=== PATIENT | female | born 1980 | race Caucasian/White ===

== ENCOUNTER 2017-01-18 18:26 | Emergency (ER) | payer OTHER ==
[~2017-01-18] VITALS: Ht 152.4 cm; Wt 80.7 kg
[~2017-01-18 18:26] MED LIST: ACETAMINOPHEN-120 ML PO; AMOXICILLI125 MG/51; AMOXICILLIN; ANASPAZ0.125 MG SL; BACTRIM; BACTRIM DS TAB1 EACH PO; BENTYL 20 MG TA20 M1 PO; CEFDINIR300 MG PO; CELEXA; CYMBALTA30 MG PO; DEPAKOTE ER500 MG PO; DEPAKOTE500 MG PO; DOXYCYCLINE 10100 MG PO; FLAGYL500 MG PO; IBUPROFEN 200200 M1; LITHIUM CARBON300 M3 PO; MEDROLDOSEPACK PO; MUCINEX TA600 MG/TA2 PO; NAPROSYN500 MG PO; NEO-POLYMYXIN-H10 ML; NEURONTIN 300300 M1 PO; NOHOMEMEDICATIONS; NORCO 5-325 TA1 EACH PO; NORFLEX100 MG PO; ONDANSETRON HCL4 M2 PO; PENICILLIN VK250 MG; PERCOCET 5-3251 EACH PO; PERCOCET PO; PHENERGAN 25 MG25 M1 PO; PHENERGAN25 MG RE; PREDNISONE 20 M20 MG PO; SEROQUEL 25 MG25 M1 PO; SEROQUEL 50 MG50 M1 NG; SEROQUEL 50 MG50 M1 PO; SULFACETAMIDE 115 M1 OP; ULTRAM 50MG TAB50 MG PO; VISTARIL; WELLBUTRIN XL300 M1; XANAX 0.5 MG0.5 M1 PO; XANAX1 MG PO; ZANTAC 150MG T150 MG PO; ZOFRAN ODT4 MG PO; ZOFRAN4 MG PO; [UNRECOGNIZED DRUG - REMARK]
[2017-01-18 19:12] LABS: URINE BILIRUBIN NEGATIVE (Negative); URINE BLOOD 1+ (Negative); URINE GLUCOSE-RANDOM* NEGATIVE (Negative); URINE KETONES TRACE (Negative); URINE LEUKOCYTES-REFLEX NEGATIVE (Negative); URINE PROTEIN (DIPSTICK) NEGATIVE (Negative); URINE UROBILINOGEN 0.2 E.U./dl (0.2-1.0)
[2017-01-18 19:14] LABS: URINE COLOR YELLOW
[2017-01-18 19:21] LABS: HEMOGLOBIN 14.2 gm/dL (12.0-15.0); MCHC 34.6 g/dL (28.0-37.0); MCV 80.8 fL (80.0-100.0); RBC 5.07 mil/uL (4.20-5.00); RDW 14.8 % (10.5-14.5); WBC 8.2 thou/uL (4.0-11.0)
[2017-01-18 19:23] LABS: SQUAMOUS 0-3 Few /LPF (0-3); URINE RBC 0-2 Rare /HPF (0-2); URINE WBC-REFLEX None Seen /HPF (0-5)
[2017-01-18 19:24] LABS: CASTS None Seen /LPF (None Seen); CRYSTALS None Seen /LPF (None Seen)
[2017-01-18 19:31] LABS: CALCIUM 8.8 mg/dL (8.5-10.1); CREATININE 0.7 mg/dL (0.6-1.0); POTASSIUM 3.6 mmol/L (3.5-5.1)
[2017-01-18] MEDS ORDERED: NAPROSYN500 MG PO (20:58)
[2017-01-18] MEDS ORDERED: PHENERGAN 25 MG25 M1 PO (20:58)
[2017-01-18 21:00] VITALS: BP 119/70
[2017-01-19 18:06] LABS: CHLAMYDIA TRACHOMATIS-PCR Negative (Negative); NEISSERIA GONORRHEA-PCR Negative (Negative)
== END 2017-01-18 21:10 | disposition home or self-care (01) ==
LOC: ER 18:26
PROVIDERS: Physician Assistant
DX: N94.89 Other specified conditions associated with female genital organs and menstrual cycle (principal); R11.0 Nausea; F41.0 Panic disorder [episodic paroxysmal anxiety]; F17.210 Nicotine dependence, cigarettes, uncomplicated; F31.9 Bipolar disorder, unspecified; Z88.1 Allergy status to other antibiotic agents

== ENCOUNTER 2017-06-17 21:17 | Emergency (ER) | payer OTHER ==
[~2017-06-17] VITALS: Ht 152.4 cm; Wt 73.9 kg
[2017-06-17 21:32] LABS: URINE BILIRUBIN NEGATIVE (Negative); URINE BLOOD NEGATIVE (Negative); URINE COLOR YELLOW; URINE GLUCOSE-RANDOM* NEGATIVE (Negative); URINE KETONES NEGATIVE (Negative); URINE NITRITE NEGATIVE (Negative); URINE PROTEIN (DIPSTICK) NEGATIVE (Negative); URINE SPECIFIC GRAVITY 1.015 (1.003-1.035); URINE UROBILINOGEN 0.2 E.U./dl (0.2-1.0)
[2017-06-17] MEDS ORDERED: ZANTAC 150MG T150 MG PO (21:36)
[2017-06-17] MEDS ORDERED: TRILEPTAL300 MG PO (21:36)
[2017-06-17] MEDS ORDERED: SEROPHENE50 MG PO (21:37)
[2017-06-17] MEDS ORDERED: LEXAPRO 10 MG T10 M1 PO (21:37)
[2017-06-17 21:55] LABS: BASOPHILS 0.7 % (0.0-2.0); EOSINOPHILS 3.1 % (0.0-3.0); HEMATOCRIT 37.7 % (37.0-47.0); LYMPHOCYTES 21.1 % (24.0-44.0); MCH 28.7 pg (26.0-34.0); MCHC 34.6 g/dL (28.0-37.0); MCV 82.9 fL (80.0-100.0); MONOCYTES 6.1 % (1.0-8.0); PLATELET COUNT 304 thou/uL (150-400); RBC 4.55 mil/uL (4.20-5.00); WBC 11.6 thou/uL (4.0-11.0)
[2017-06-17 22:04] LABS: CALCIUM 8.2 mg/dL (8.5-10.1); CREATININE 0.7 mg/dL (0.6-1.0); POTASSIUM 4.1 mmol/L (3.5-5.1)
[2017-06-17 22:11] LABS: MANUAL DIFF NO
[2017-06-17] MEDS ORDERED: NAPROSYN500 MG PO (23:16)
[2017-06-17 23:30] VITALS: BP 107/75
== END 2017-06-17 23:30 | disposition home or self-care (01) ==
LOC: ER 21:17
PROVIDERS: Nurse Practitioner
DX: R10.9 Unspecified abdominal pain (principal); F41.0 Panic disorder [episodic paroxysmal anxiety]; F31.9 Bipolar disorder, unspecified; F17.210 Nicotine dependence, cigarettes, uncomplicated; F10.99 Alcohol use, unspecified with unspecified alcohol-induced disorder; Z88.1 Allergy status to other antibiotic agents

== ENCOUNTER 2017-07-19 19:41 | Emergency (ER) | payer OTHER ==
[~2017-07-19] VITALS: Ht 152.4 cm; Wt 73.9 kg
[~2017-07-19 19:41] MED LIST changes: +LEXAPRO 10 MG T10 M1 PO; +SEROPHENE50 MG PO; +TRILEPTAL300 MG PO
[2017-07-19] MEDS ORDERED: SEROQUEL 50 MG50 M1 PO (19:59)
[2017-07-19] MEDS ORDERED: VISTARIL 25 MG25 M1 PO (21:06)
[2017-07-19 21:23] VITALS: BP 138/103
== END 2017-07-19 21:25 | disposition home or self-care (01) ==
LOC: ER 19:41
DX: L29.8 Other pruritus (principal); F41.0 Panic disorder [episodic paroxysmal anxiety]; F31.9 Bipolar disorder, unspecified; F17.210 Nicotine dependence, cigarettes, uncomplicated; F10.99 Alcohol use, unspecified with unspecified alcohol-induced disorder; Z87.442 Personal history of urinary calculi; Z88.1 Allergy status to other antibiotic agents

== ENCOUNTER 2017-11-06 14:41 | Emergency (ER) | payer OTHER ==
[~2017-11-06] VITALS: Ht 152.4 cm; Wt 86.2 kg
[~2017-11-06 14:41] MED LIST changes: +VISTARIL 25 MG25 M1 PO
[2017-11-06 15:54] LABS: URINE BILIRUBIN NEGATIVE (Negative); URINE BLOOD TRACE (Negative); URINE CLARITY CLEAR; URINE COLOR YELLOW; URINE GLUCOSE-RANDOM* NEGATIVE (Negative); URINE KETONES NEGATIVE (Negative); URINE LEUKOCYTES-REFLEX NEGATIVE (Negative); URINE NITRITE-REFLEX NEGATIVE (Negative); URINE PROTEIN (DIPSTICK) NEGATIVE (Negative); URINE SPECIFIC GRAVITY 1.025 (1.005-1.035); URINE UROBILINOGEN 0.2 E.U./dl (0.2-1.0)
[2017-11-06 16:01] LABS: ABSOLUTE NEUTROPHILS 8.8 thou/uL (1.4-8.2); BASOPHILS 0.7 % (0.0-2.0); EOSINOPHILS 0.9 % (0.0-3.0); HEMATOCRIT 41.6 % (37.0-47.0); HEMOGLOBIN 13.9 gm/dL (12.0-15.0); LYMPHOCYTES 16.7 % (24.0-44.0); MCH 26.8 pg (26.0-34.0); MCHC 33.4 g/dL (28.0-37.0); MCV 80.4 fL (80.0-100.0); MONOCYTES 4.3 % (1.0-8.0); PLATELET COUNT 332 thou/uL (150-400); POLYS 77.4 % (36.0-66.0); RBC 5.18 mil/uL (4.20-5.00); RDW 15.2 % (10.5-14.5); WBC 11.3 thou/uL (4.0-11.0)
[2017-11-06 16:04] LABS: ANION GAP 7 mmol/L (7-16); BUN 12 mg/dL (7-18); CALCIUM 9.3 mg/dL (8.5-10.1); CHLORIDE 102 mmol/L (98-107); CO2 26 mmol/L (21-32); CREATININE 0.8 mg/dL (0.6-1.0); GLUCOSE 96 mg/dL (74-106); POTASSIUM 3.8 mmol/L (3.5-5.1); SODIUM 135 mmol/L (136-145)
[2017-11-06 16:10] LABS: ALBUMIN 3.9 g/dL (3.4-5.0); DIRECT BILIRUBIN < 0.1 mg/dL (<0.1-0.3); LIPASE 140 U/L (73-393); SGOT 25 U/L (15-37); SGPT 28 U/L (30-65); TOTAL BILIRUBIN 0.2 mg/dL (<0.1-1.0); TOTAL PROTEIN 7.6 g/dL (6.4-8.2)
[2017-11-06] MEDS ORDERED: NAPROSYN500 MG PO (17:04)
[2017-11-06] MEDS ORDERED: PYRIDIUM200 MG PO (17:13)
[2018-06-01] MEDS ORDERED: FLEXERIL PO (18:42)
== END 2017-11-06 19:04 | disposition home or self-care (01) ==
LOC: ER 14:41
PROVIDERS: Emergency Medicine
DX: R10.32 Left lower quadrant pain (principal); R30.0 Dysuria; F17.210 Nicotine dependence, cigarettes, uncomplicated; Z88.1 Allergy status to other antibiotic agents

== ENCOUNTER 2017-11-27 18:28 | Emergency (ER) | payer OTHER ==
[~2017-11-27] VITALS: Ht 152.4 cm; Wt 83.9 kg
--- NOTE | ~2017-11-27 | EKG ---
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
[~2017-11-27 18:28] MED LIST changes: +PYRIDIUM200 MG PO
[2017-11-27 19:31] LABS: URINE BILIRUBIN NEGATIVE (Negative); URINE BLOOD NEGATIVE (Negative); URINE CLARITY CLEAR; URINE COLOR YELLOW; URINE GLUCOSE-RANDOM* NEGATIVE (Negative); URINE KETONES NEGATIVE (Negative); URINE LEUKOCYTES-REFLEX NEGATIVE (Negative); URINE NITRITE-REFLEX NEGATIVE (Negative); URINE PROTEIN (DIPSTICK) NEGATIVE (Negative); URINE SPECIFIC GRAVITY <= 1.005 (1.005-1.035); URINE UROBILINOGEN 0.2 E.U./dl (0.2-1.0)
[2017-11-27 19:46] LABS: ABSOLUTE NEUTROPHILS 6.1 thou/uL (1.4-8.2); BASOPHILS 0.9 % (0.0-2.0); EOSINOPHILS 0.6 % (0.0-3.0); HEMATOCRIT 40.3 % (37.0-47.0); HEMOGLOBIN 13.5 gm/dL (12.0-15.0); LYMPHOCYTES 25.9 % (24.0-44.0); MCH 27.1 pg (26.0-34.0); MCHC 33.5 g/dL (28.0-37.0); MCV 80.9 fL (80.0-100.0); MONOCYTES 5.8 % (1.0-8.0); PLATELET COUNT 320 thou/uL (150-400); POLYS 66.8 % (36.0-66.0); RBC 4.98 mil/uL (4.20-5.00); RDW 15.2 % (10.5-14.5); WBC 9.1 thou/uL (4.0-11.0)
[2017-11-27 19:53] LABS: ANION GAP 13 mmol/L (7-16); BUN 6 mg/dL (7-18); CALCIUM 9.3 mg/dL (8.5-10.1); CHLORIDE 103 mmol/L (98-107); CO2 24 mmol/L (21-32); CREATININE 0.7 mg/dL (0.6-1.0); GLUCOSE 95 mg/dL (74-106); POTASSIUM 3.5 mmol/L (3.5-5.1); SODIUM 140 mmol/L (136-145)
[2017-11-27 20:02] LABS: ALBUMIN 3.9 g/dL (3.4-5.0); LIPASE 108 U/L (73-393); SGOT 21 U/L (15-37); SGPT 23 U/L (30-65); TOTAL BILIRUBIN 0.3 mg/dL (<0.1-1.0); TOTAL PROTEIN 7.7 g/dL (6.4-8.2); TROPONIN-I < 0.04 ng/mL (<0.06)
[2017-11-27] MEDS ORDERED: AMOXICILLIN875 MG PO (21:02)
[2018-06-01] MEDS ORDERED: FLEXERIL PO (18:42)
== END 2017-11-27 21:41 | disposition home or self-care (01) ==
LOC: ER 18:28
PROVIDERS: Emergency Medicine
DX: H72.92 Unspecified perforation of tympanic membrane, left ear (principal); R11.2 Nausea with vomiting, unspecified; F31.9 Bipolar disorder, unspecified; F17.210 Nicotine dependence, cigarettes, uncomplicated; F10.99 Alcohol use, unspecified with unspecified alcohol-induced disorder; Z88.1 Allergy status to other antibiotic agents

== ENCOUNTER 2017-12-21 19:20 | Emergency (ER) | payer OTHER ==
[~2017-12-21] VITALS: Ht 152.4 cm; Wt 83.0 kg
[~2017-12-21 19:20] MED LIST changes: +AMOXICILLIN875 MG PO
[2017-12-21] MEDS ORDERED: ZANTAC 150MG T150 MG PO (19:36)
[2017-12-21 19:58] LABS: URINE BILIRUBIN NEGATIVE (Negative); URINE BLOOD 1+ (Negative); URINE CLARITY CLEAR; URINE COLOR YELLOW; URINE GLUCOSE-RANDOM* NEGATIVE (Negative); URINE KETONES NEGATIVE (Negative); URINE LEUKOCYTES NEGATIVE (Negative); URINE NITRITE NEGATIVE (Negative); URINE PROTEIN (DIPSTICK) NEGATIVE (Negative); URINE SPECIFIC GRAVITY 1.025 (1.005-1.035); URINE UROBILINOGEN 0.2 E.U./dl (0.2-1.0)
[2017-12-21 20:06] LABS: AMP/METHAMP Negative (Negative); BARBITURATES Negative (Negative); BENZODIAZEPINES Negative (Negative); COCAINE Negative (Negative); METHADONE Negative (Negative); OPIATES Negative (Negative); PCP Negative (Negative)
[2017-12-21 20:24] LABS: BACTERIA 1-9 Few /HPF (None Seen); CASTS None Seen /LPF (None Seen); CRYSTALS None Seen /LPF (None Seen); MUCUS 0-3 Light strn/LPF (None Seen); SQUAMOUS 0-3 Few /LPF (0-3); URINE RBC 3-10 Few /HPF (0-2); URINE WBC None Seen /HPF (0-5)
[2017-12-21 20:27] LABS: ABSOLUTE NEUTROPHILS 5.1 thou/uL (1.4-8.2); BASOPHILS 1.1 % (0.0-2.0); EOSINOPHILS 2.1 % (0.0-3.0); HEMATOCRIT 40.4 % (37.0-47.0); HEMOGLOBIN 13.8 gm/dL (12.0-15.0); LYMPHOCYTES 26.2 % (24.0-44.0); MCH 27.5 pg (26.0-34.0); MCHC 34.1 g/dL (28.0-37.0); MCV 80.8 fL (80.0-100.0); MONOCYTES 4.9 % (1.0-8.0); PLATELET COUNT 321 thou/uL (150-400); POLYS 65.7 % (36.0-66.0); RDW 15.2 % (10.5-14.5); WBC 7.7 thou/uL (4.0-11.0)
[2017-12-21 20:41] LABS: CALCIUM 9.3 mg/dL (8.5-10.1); CREATININE 0.8 mg/dL (0.6-1.0); POTASSIUM 3.7 mmol/L (3.5-5.1)
[2017-12-21 22:38] VITALS: BP 115/72
== END 2017-12-21 22:40 | disposition home or self-care (01) ==
LOC: ER 19:20
PROVIDERS: Nurse Practitioner
DX: F99 Mental disorder, not otherwise specified (principal); F17.210 Nicotine dependence, cigarettes, uncomplicated; F41.0 Panic disorder [episodic paroxysmal anxiety]; Z88.1 Allergy status to other antibiotic agents; Z87.442 Personal history of urinary calculi

== ENCOUNTER 2018-06-12 10:38 | Emergency (ER) | payer OTHER ==
[~2018-06-12] VITALS: Ht 152.4 cm; Wt 82.6 kg
[~2018-06-12 10:38] MED LIST changes: +FLEXERIL PO
[2018-06-12] MEDS ORDERED: SEROQUEL300 MG PO (10:47)
[2018-06-12] MEDS ORDERED: BACTRIM DS TAB1 EACH PO (12:03)
[2018-06-12] MEDS ORDERED: MOBIC15 MG PO (12:04)
[2018-06-12 12:18] VITALS: BP 120/76
== END 2018-06-12 12:15 | disposition home or self-care (01) ==
LOC: ER 10:38
DX: N76.4 Abscess of vulva (principal); F17.210 Nicotine dependence, cigarettes, uncomplicated; F31.9 Bipolar disorder, unspecified; Z88.1 Allergy status to other antibiotic agents; Z87.442 Personal history of urinary calculi

== ENCOUNTER 2018-06-30 20:31 | Emergency (ER) | payer OTHER ==
[~2018-06-30] VITALS: Ht 152.4 cm; Wt 86.2 kg
--- NOTE | ~2018-06-30 | EKG ---
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
[~2018-06-30 20:31] MED LIST changes: +MOBIC15 MG PO; +SEROQUEL300 MG PO
[2018-06-30 21:22] LABS: URINE BILIRUBIN NEGATIVE (Negative); URINE BLOOD TRACE (Negative); URINE CLARITY CLEAR; URINE COLOR YELLOW; URINE GLUCOSE-RANDOM* NEGATIVE (Negative); URINE KETONES 2+ (Negative); URINE LEUKOCYTES NEGATIVE (Negative); URINE LEUKOCYTES-REFLEX NEGATIVE (Negative); URINE NITRITE NEGATIVE (Negative); URINE NITRITE-REFLEX NEGATIVE (Negative); URINE PROTEIN (DIPSTICK) NEGATIVE (Negative); URINE SPECIFIC GRAVITY >= 1.030 (1.005-1.035); URINE UROBILINOGEN 0.2 E.U./dl (0.2-1.0)
[2018-06-30 21:37] LABS: ABSOLUTE NEUTROPHILS 5.7 thou/uL (1.4-8.2); BASOPHILS 0.9 % (0.0-2.0); EOSINOPHILS 0.5 % (0.0-3.0); HEMOGLOBIN 14.4 gm/dL (12.0-15.0); LYMPHOCYTES 22.9 % (24.0-44.0); MCH 28.2 pg (26.0-34.0); MCV 80.4 fL (80.0-100.0); MONOCYTES 7.9 % (1.0-8.0); PLATELET COUNT 330 thou/uL (150-400); POLYS 67.8 % (36.0-66.0); WBC 8.3 thou/uL (4.0-11.0)
[2018-06-30 21:50] LABS: ANION GAP 14 mmol/L (7-16); BUN 7 mg/dL (7-18); CALCIUM 9.3 mg/dL (8.5-10.1); CHLORIDE 100 mmol/L (98-107); CO2 22 mmol/L (21-32); CREATININE 0.8 mg/dL (0.6-1.0); GLUCOSE 110 mg/dL (74-106); POTASSIUM 3.8 mmol/L (3.5-5.1); SODIUM 136 mmol/L (136-145)
[2018-06-30 21:57] LABS: ALBUMIN 4.1 g/dL (3.4-5.0); DIRECT BILIRUBIN < 0.1 mg/dL (<0.1-0.3); LIPASE 98 U/L (73-393); SGOT 16 U/L (15-37); SGPT 25 U/L (30-65); TOTAL BILIRUBIN 0.3 mg/dL (<0.1-1.0); TOTAL PROTEIN 8.3 g/dL (6.4-8.2); TROPONIN-I <0.06 ng/mL (<0.06)
[2018-06-30] MEDS ORDERED: PHENERGAN 25 MG25 M1 PO (22:40)
[2018-06-30] MEDS ORDERED: NAPROSYN500 MG PO (22:40)
[2018-06-30 23:02] VITALS: BP 124/77
== END 2018-06-30 23:07 | disposition home or self-care (01) ==
LOC: ER 20:31
PROVIDERS: Physician Assistant
DX: R11.2 Nausea with vomiting, unspecified (principal); G89.29 Other chronic pain; M79.10 Myalgia, unspecified site; N32.81 Overactive bladder; R10.13 Epigastric pain; R10.30 Lower abdominal pain, unspecified; R00.0 Tachycardia, unspecified; F17.210 Nicotine dependence, cigarettes, uncomplicated; Z88.1 Allergy status to other antibiotic agents; F31.9 Bipolar disorder, unspecified; Z87.442 Personal history of urinary calculi; F41.0 Panic disorder [episodic paroxysmal anxiety]

== ENCOUNTER 2018-08-25 18:37 | Emergency (ER) | payer OTHER ==
[~2018-08-25] VITALS: Ht 152.4 cm; Wt 88.5 kg
[2018-08-25] MEDS ORDERED: DEPAKOTE ER500 MG PO (18:51)
[2018-08-25] MEDS ORDERED: MINIPRESS1 MG PO (18:52)
[2018-08-25] MEDS ORDERED: CORTISPORIN OTI10 M2 OTIC (19:28)
[2018-08-25 20:19] VITALS: BP 106/67
== END 2018-08-25 20:20 | disposition home or self-care (01) ==
LOC: ER 18:37
DX: H60.93 Unspecified otitis externa, bilateral (principal); F31.9 Bipolar disorder, unspecified; F17.210 Nicotine dependence, cigarettes, uncomplicated; Z88.1 Allergy status to other antibiotic agents

== ENCOUNTER 2018-11-22 16:28 | Emergency (ER) | payer OTHER ==
[~2018-11-22] VITALS: Ht 152.4 cm; Wt 90.7 kg
[~2018-11-22 16:28] MED LIST changes: +CORTISPORIN OTI10 M2 OTIC; +MINIPRESS1 MG PO
[2018-11-22 16:32] VITALS: BP 140/81
[2018-11-22] MEDS ORDERED: ZYPREXA ZYDIS10 MG PO (16:38)
[2018-11-22] MEDS ORDERED: CLARITIN-D 121 EAC1 PO (17:14)
[2018-11-22] MEDS ORDERED: ONDANSETRON HCL4 M2 PO (17:14)
== END 2018-11-22 17:26 | disposition home or self-care (01) ==
LOC: ER 16:28
DX: B34.9 Viral infection, unspecified (principal); F41.0 Panic disorder [episodic paroxysmal anxiety]; F31.9 Bipolar disorder, unspecified; F17.210 Nicotine dependence, cigarettes, uncomplicated; Z87.442 Personal history of urinary calculi; Z98.890 Other specified postprocedural states; Z88.1 Allergy status to other antibiotic agents

== ENCOUNTER 2019-08-19 21:57 | Emergency (ER) | payer OTHER ==
[~2019-08-19] VITALS: Ht 152.4 cm; Wt 77.1 kg
[~2019-08-19 21:57] MED LIST changes: +CLARITIN-D 121 EAC1 PO; +ZYPREXA ZYDIS10 MG PO
[2019-08-19] MEDS ORDERED: OMEPRAZOLE 20 M20 M1 PO (22:08)
[2019-08-19] MEDS ORDERED: TOPAMAX 25 MG T25 M1 PO (22:09)
[2019-08-19 23:12] LABS: ABSOLUTE NEUTROPHILS 12.2 thou/uL (1.4-8.2); BASOPHILS 0.5 % (0.0-2.0); EOSINOPHILS 0.4 % (0.0-3.0); HEMATOCRIT 44.1 % (37.0-47.0); HEMOGLOBIN 14.5 gm/dL (12.0-15.0); LYMPHOCYTES 15.2 % (24.0-44.0); MCH 26.9 pg (26.0-34.0); MCHC 32.8 g/dL (28.0-37.0); MCV 81.9 fL (80.0-100.0); MONOCYTES 6.4 % (1.0-8.0); PLATELET COUNT 389 thou/uL (150-400); POLYS 77.5 % (36.0-66.0); RBC 5.38 mil/uL (4.20-5.00); RDW 15.5 % (10.5-14.5); WBC 15.7 thou/uL (4.0-11.0)
[2019-08-19 23:16] LABS: CALCIUM 9.2 mg/dL (8.5-10.1); CREATININE 1.1 mg/dL (0.6-1.0); POTASSIUM 3.2 mmol/L (3.5-5.1)
[2019-08-20] MEDS ORDERED: LIDOCAINE 2%2 %/5 GM TOP (01:09)
[2019-08-20 01:16] VITALS: BP 103/59
== END 2019-08-20 01:40 | disposition home or self-care (01) ==
LOC: ER 21:57
PROVIDERS: Emergency Medicine
DX: S01.01XA Laceration without foreign body of scalp, initial encounter (principal); S30.811A Abrasion of abdominal wall, initial encounter; S50.312A Abrasion of left elbow, initial encounter; S60.512A Abrasion of left hand, initial encounter; F31.9 Bipolar disorder, unspecified; F17.210 Nicotine dependence, cigarettes, uncomplicated; Z87.442 Personal history of urinary calculi; Z98.890 Other specified postprocedural states; Z88.1 Allergy status to other antibiotic agents; W01.198A Fall on same level from slipping, tripping and stumbling with subsequent striking against other object, initial encounter; Y92.810 Car as the place of occurrence of the external cause; Y93.89 Activity, other specified; Y99.8 Other external cause status

== ENCOUNTER 2019-09-12 13:50 | Emergency (ER) | payer OTHER ==
[~2019-09-12] VITALS: Ht 152.4 cm; Wt 74.8 kg
[~2019-09-12 13:50] MED LIST changes: +LIDOCAINE 2%2 %/5 GM TOP; +OMEPRAZOLE 20 M20 M1 PO; +TOPAMAX 25 MG T25 M1 PO
[2019-09-12 13:51] VITALS: BP 119/78
== END 2019-09-12 14:59 | disposition home or self-care (01) ==
LOC: ER 13:50
DX: Z48.02 Encounter for removal of sutures (principal); F31.9 Bipolar disorder, unspecified; F17.210 Nicotine dependence, cigarettes, uncomplicated; Z98.51 Tubal ligation status; Z87.442 Personal history of urinary calculi; Z88.1 Allergy status to other antibiotic agents

== ENCOUNTER 2020-05-09 21:42 | Emergency (ER) | payer OTHER ==
[~2020-05-09] VITALS: Ht 152.4 cm; Wt 80.7 kg
[2020-05-09] MEDS ORDERED: OLANZAPINE10 MG PO (21:52)
[2020-05-10] MEDS ORDERED: BACTRIM DS TAB1 EACH PO (00:21)
[2020-05-10 00:27] VITALS: BP 109/78
== END 2020-05-10 00:27 | disposition home or self-care (01) ==
LOC: ER 21:42
DX: N75.0 Cyst of Bartholin's gland (principal); R35.0 Frequency of micturition; F31.9 Bipolar disorder, unspecified; F41.0 Panic disorder [episodic paroxysmal anxiety]; F17.210 Nicotine dependence, cigarettes, uncomplicated; Z98.51 Tubal ligation status; Z87.442 Personal history of urinary calculi; Z79.899 Other long term (current) drug therapy; Z88.1 Allergy status to other antibiotic agents

== ENCOUNTER 2020-05-20 04:46 | Emergency (ER) | payer OTHER ==
[~2020-05-20] VITALS: Ht 154.9 cm; Wt 84.8 kg
[~2020-05-20 04:46] MED LIST changes: +OLANZAPINE10 MG PO
[2020-05-20] MEDS ORDERED: EXCEDRIN CAPLE1 EACH PO (04:54)
[2020-05-20] MEDS ORDERED: NAPROSYN500 MG PO (05:16)
[2020-05-20 06:04] VITALS: BP 113/77
== END 2020-05-20 06:06 | disposition home or self-care (01) ==
LOC: ER 04:46
DX: S80.02XA Contusion of left knee, initial encounter (principal); J02.9 Acute pharyngitis, unspecified; M54.2 Cervicalgia; F41.0 Panic disorder [episodic paroxysmal anxiety]; F31.9 Bipolar disorder, unspecified; F17.210 Nicotine dependence, cigarettes, uncomplicated; Z98.51 Tubal ligation status; Z87.442 Personal history of urinary calculi; Z79.899 Other long term (current) drug therapy; Z79.82 Long term (current) use of aspirin; Z88.1 Allergy status to other antibiotic agents; Y04.8XXA Assault by other bodily force, initial encounter; Y93.89 Activity, other specified; Y92.89 Other specified places as the place of occurrence of the external cause; Y99.8 Other external cause status

== ENCOUNTER 2020-06-15 16:19 | Emergency (ER) | payer OTHER ==
[~2020-06-15] VITALS: Ht 165.1 cm; Wt 89.4 kg
[~2020-06-15 16:19] MED LIST changes: +EXCEDRIN CAPLE1 EACH PO
[2020-06-15 17:04] LABS: URINE BLOOD 3+ (Negative); URINE CLARITY CLEAR; URINE COLOR YELLOW; URINE GLUCOSE-RANDOM* NEGATIVE (Negative); URINE KETONES 1+ (Negative); URINE NITRITE-REFLEX NEGATIVE (Negative); URINE PROTEIN (DIPSTICK) TRACE (Negative); URINE SPECIFIC GRAVITY >= 1.030 (1.005-1.035)
[2020-06-15 17:05] LABS: URINE BILIRUBIN NEGATIVE (Negative); URINE LEUKOCYTES-REFLEX 1+ (Negative)
[2020-06-15 17:12] LABS: URINE RBC >20 Many /HPF (0-2)
[2020-06-15 17:13] LABS: CASTS None Seen /LPF (None Seen); CRYSTALS None Seen /LPF (None Seen); SQUAMOUS 4-10 Moderate /LPF (0-3); URINE WBC-REFLEX 6-15 Few /HPF (0-5)
[2020-06-15 17:14] LABS: BACTERIA-REFLEX 1-9 Few /HPF (None Seen)
[2020-06-15] MEDS ORDERED: FLAGYL500 M1 PO (18:29)
[2020-06-15] MEDS ORDERED: KEFLEX500 M1 PO (18:29)
[2020-06-15 18:35] VITALS: BP 145/85
== END 2020-06-15 18:35 | disposition home or self-care (01) ==
LOC: ER 16:19
PROVIDERS: Nurse Practitioner
DX: N39.0 Urinary tract infection, site not specified (principal); A59.01 Trichomonal vulvovaginitis; F17.210 Nicotine dependence, cigarettes, uncomplicated; Z79.899 Other long term (current) drug therapy; Z79.82 Long term (current) use of aspirin; Z88.1 Allergy status to other antibiotic agents

== ENCOUNTER 2020-09-08 16:53 | Emergency (ER) | payer OTHER ==
[~2020-09-08] VITALS: Ht 154.9 cm; Wt 87.5 kg
[~2020-09-08 16:53] MED LIST changes: +FLAGYL500 M1 PO; +KEFLEX500 M1 PO
[2020-09-08] MEDS ORDERED: DEPAKOTE ER500 M1 PO (17:07)
[2020-09-08 17:49] LABS: URINE BILIRUBIN NEGATIVE (Negative); URINE BLOOD 3+ (Negative); URINE GLUCOSE-RANDOM* NEGATIVE (Negative); URINE KETONES NEGATIVE (Negative); URINE LEUKOCYTES-REFLEX NEGATIVE (Negative); URINE NITRITE-REFLEX NEGATIVE (Negative); URINE PROTEIN (DIPSTICK) NEGATIVE (Negative); URINE UROBILINOGEN 0.2 E.U./dl (0.2-1.0)
[2020-09-08 17:50] LABS: URINE CLARITY HAZY; URINE COLOR LT RED
[2020-09-08 17:52] LABS: BACTERIA-REFLEX None Seen /HPF (None Seen); CASTS None Seen /LPF (None Seen); CRYSTALS None Seen /LPF (None Seen); MUCUS 0-3 Light strn/LPF (None Seen); SQUAMOUS 4-10 Moderate /LPF (0-3); URINE RBC >20 Many /HPF (0-2); URINE WBC-REFLEX 0-5 Rare /HPF (0-5)
[2020-09-08 17:53] LABS: ABSOLUTE NEUTROPHILS 6.9 thou/uL (1.4-8.2); BASOPHILS 0.9 % (0.0-2.0); EOSINOPHILS 2.3 % (0.0-3.0); HEMATOCRIT 41.7 % (37.0-47.0); HEMOGLOBIN 13.6 gm/dL (12.0-15.0); LYMPHOCYTES 19.9 % (24.0-44.0); MCH 27.3 pg (26.0-34.0); MCHC 32.5 g/dL (28.0-37.0); MCV 83.9 fL (80.0-100.0); MONOCYTES 5.5 % (1.0-8.0); PLATELET COUNT 303 thou/uL (150-400); POLYS 71.4 % (36.0-66.0); RBC 4.97 mil/uL (4.20-5.00); WBC 9.6 thou/uL (4.0-11.0)
[2020-09-08 17:56] LABS: CALCIUM 8.4 mg/dL (8.5-10.1); CREATININE 0.8 mg/dL (0.6-1.0); POTASSIUM 3.6 mmol/L (3.5-5.1)
[2020-09-08 18:02] LABS: ALBUMIN 2.8 g/dL (3.4-5.0); TOTAL BILIRUBIN 0.3 mg/dL (0.2-1.0); TOTAL PROTEIN 5.6 g/dL (6.4-8.2)
[2020-09-08] MEDS ORDERED: ONDANSETRON HCL4 M2 PO (18:17)
[2020-09-08] MEDS ORDERED: BACTRIM DS TAB1 EACH PO (18:17)
[2020-09-08] MEDS ORDERED: NORCO 5-325 TA1 EAC2 PO (18:17)
[2020-09-08 18:31] VITALS: BP 122/80
== END 2020-09-08 18:40 | disposition home or self-care (01) ==
LOC: ER 16:53
PROVIDERS: Physician Assistant
DX: N76.4 Abscess of vulva (principal); R11.0 Nausea; F17.210 Nicotine dependence, cigarettes, uncomplicated; Z88.1 Allergy status to other antibiotic agents; F31.9 Bipolar disorder, unspecified; Z98.51 Tubal ligation status; Z87.442 Personal history of urinary calculi; Z98.890 Other specified postprocedural states; Z79.82 Long term (current) use of aspirin; Z79.899 Other long term (current) drug therapy

== ENCOUNTER 2020-10-01 16:00 | Emergency (ER) | payer OTHER ==
[~2020-10-01] VITALS: Ht 152.4 cm; Wt 85.7 kg
[~2020-10-01 16:00] MED LIST changes: +DEPAKOTE ER500 M1 PO; +NORCO 5-325 TA1 EAC2 PO
[2020-10-01 16:59] LABS: URINE BILIRUBIN NEGATIVE (Negative); URINE BLOOD NEGATIVE (Negative); URINE CLARITY SL CLOUDY; URINE COLOR YELLOW; URINE GLUCOSE-RANDOM* NEGATIVE (Negative); URINE KETONES NEGATIVE (Negative); URINE LEUKOCYTES-REFLEX NEGATIVE (Negative); URINE NITRITE-REFLEX NEGATIVE (Negative); URINE PROTEIN (DIPSTICK) NEGATIVE (Negative); URINE SPECIFIC GRAVITY >= 1.030 (1.005-1.035)
[2020-10-01 17:49] LABS: ABSOLUTE NEUTROPHILS 3.6 thou/uL (1.4-8.2); EOSINOPHILS 2.7 % (0.0-3.0); HEMATOCRIT 43.5 % (37.0-47.0); HEMOGLOBIN 14.5 gm/dL (12.0-15.0); LYMPHOCYTES 28.6 % (24.0-44.0); MCH 27.9 pg (26.0-34.0); MCHC 33.2 g/dL (28.0-37.0); MCV 83.8 fL (80.0-100.0); PLATELET COUNT 306 thou/uL (150-400); POLYS 57.7 % (36.0-66.0); RDW 15.5 % (10.5-14.5); WBC 6.2 thou/uL (4.0-11.0)
[2020-10-01 18:00] LABS: CALCIUM 8.5 mg/dL (8.5-10.1); CREATININE 0.7 mg/dL (0.6-1.0); POTASSIUM 3.9 mmol/L (3.5-5.1)
[2020-10-01 18:06] LABS: ALBUMIN 2.9 g/dL (3.4-5.0); TOTAL BILIRUBIN 0.2 mg/dL (0.2-1.0); TOTAL PROTEIN 6.1 g/dL (6.4-8.2)
[2020-10-01] MEDS ORDERED: AUGMENTIN 875-1 EACH PO (19:22)
[2020-10-01] MEDS ORDERED: HYDROCODON-ACE1 EAC7 PO (19:22)
[2020-10-01 19:32] VITALS: BP 99/56
== END 2020-10-01 19:33 | disposition home or self-care (01) ==
LOC: ER 16:00
PROVIDERS: Emergency Medicine
DX: K61.0 Anal abscess (principal); K61.1 Rectal abscess; F17.210 Nicotine dependence, cigarettes, uncomplicated; Z79.82 Long term (current) use of aspirin; Z88.1 Allergy status to other antibiotic agents; Z87.442 Personal history of urinary calculi; Z98.890 Other specified postprocedural states; Z98.51 Tubal ligation status

== ENCOUNTER 2020-10-28 14:43 | Emergency (ER) | payer OTHER ==
[~2020-10-28] VITALS: Ht 152.4 cm; Wt 85.7 kg
[~2020-10-28 14:43] MED LIST changes: +AUGMENTIN 875-1 EACH PO; +HYDROCODON-ACE1 EAC7 PO
[2020-10-28 15:23] LABS: URINE BILIRUBIN NEGATIVE (Negative); URINE BLOOD NEGATIVE (Negative); URINE CLARITY CLEAR; URINE COLOR YELLOW; URINE GLUCOSE-RANDOM* NEGATIVE (Negative); URINE KETONES NEGATIVE (Negative); URINE LEUKOCYTES-REFLEX NEGATIVE (Negative); URINE NITRITE-REFLEX NEGATIVE (Negative); URINE PROTEIN (DIPSTICK) NEGATIVE (Negative); URINE SPECIFIC GRAVITY >= 1.030 (1.005-1.035); URINE UROBILINOGEN 0.2 E.U./dl (0.2-1.0)
[2020-10-28 17:27] LABS: ABSOLUTE NEUTROPHILS 3.5 thou/uL (1.4-8.2); BASOPHILS 1.2 % (0.0-2.0); EOSINOPHILS 4.5 % (0.0-3.0); HEMATOCRIT 42.2 % (37.0-47.0); HEMOGLOBIN 13.9 gm/dL (12.0-15.0); LYMPHOCYTES 27.1 % (24.0-44.0); MCH 27.8 pg (26.0-34.0); MCHC 32.9 g/dL (28.0-37.0); MCV 84.5 fL (80.0-100.0); MONOCYTES 8.8 % (1.0-8.0); PLATELET COUNT 295 thou/uL (150-400); POLYS 58.4 % (36.0-66.0); RDW 15.4 % (10.5-14.5)
[2020-10-28 17:37] LABS: CALCIUM 8.8 mg/dL (8.5-10.1); CREATININE 0.8 mg/dL (0.6-1.0)
[2020-10-28 17:39] LABS: POTASSIUM 4.6 mmol/L (3.5-5.1)
[2020-10-28 17:42] LABS: TOTAL BILIRUBIN 0.3 mg/dL (0.2-1.0); TOTAL PROTEIN 6.5 g/dL (6.4-8.2)
[2020-10-28] MEDS ORDERED: FLAGYL500 M1 PO (19:13)
[2020-10-28 19:51] VITALS: BP 129/74
== END 2020-10-28 19:30 | disposition home or self-care (01) ==
LOC: ER 14:43
PROVIDERS: Physician Assistant
DX: N76.0 Acute vaginitis (principal); B96.89 Other specified bacterial agents as the cause of diseases classified elsewhere; F17.210 Nicotine dependence, cigarettes, uncomplicated; Z79.899 Other long term (current) drug therapy; Z88.1 Allergy status to other antibiotic agents

== ENCOUNTER 2021-01-03 00:17 | Emergency (ER) | payer OTHER ==
[~2021-01-03] VITALS: Ht 152.4 cm; Wt 86.2 kg
[2021-01-03] MEDS ORDERED: ZYPREXA20 MG PO (00:22)
[2021-01-03 02:04] VITALS: BP 102/80
== END 2021-01-03 02:10 | disposition home or self-care (01) ==
LOC: ER 00:17
DX: S93.492A Sprain of other ligament of left ankle, initial encounter (principal); F17.210 Nicotine dependence, cigarettes, uncomplicated; Z88.1 Allergy status to other antibiotic agents; Z79.899 Other long term (current) drug therapy; Z87.442 Personal history of urinary calculi; Z98.51 Tubal ligation status; X50.1XXA Overexertion from prolonged static or awkward postures, initial encounter; Y93.01 Activity, walking, marching and hiking; Y92.89 Other specified places as the place of occurrence of the external cause; Y99.9 Unspecified external cause status

== ENCOUNTER 2021-02-01 09:26 | Emergency (ER) | payer OTHER ==
[~2021-02-01] VITALS: Ht 154.9 cm; Wt 79.4 kg
[~2021-02-01 09:26] MED LIST changes: +ZYPREXA20 MG PO
[2021-02-01 09:55] LABS: URINE BILIRUBIN NEGATIVE (Negative); URINE BLOOD TRACE (Negative); URINE CLARITY CLOUDY; URINE COLOR YELLOW; URINE GLUCOSE-RANDOM* NEGATIVE (Negative); URINE KETONES NEGATIVE (Negative); URINE NITRITE-REFLEX NEGATIVE (Negative); URINE PROTEIN (DIPSTICK) NEGATIVE (Negative); URINE SPECIFIC GRAVITY >= 1.030 (1.005-1.035); URINE UROBILINOGEN 0.2 E.U./dl (0.2-1.0)
[2021-02-01 09:58] LABS: URINE LEUKOCYTES-REFLEX 3+ (Negative)
[2021-02-01 10:06] LABS: SQUAMOUS >10 Many /LPF (0-3)
[2021-02-01 10:07] LABS: AMORPHOUS URATES Moderate /LPF (None Seen); CASTS None Seen /LPF (None Seen); URINE RBC 3-10 Few /HPF (NONE SEEN); URINE WBC-REFLEX 6-15 Few /HPF (0-5)
[2021-02-01] MEDS ORDERED: BACTRIM DS TAB1 EACH PO (11:00)
[2021-02-01 11:28] VITALS: BP 135/84
== END 2021-02-01 11:29 | disposition home or self-care (01) ==
LOC: ER 09:26
PROVIDERS: Emergency Medicine
DX: S60.022A Contusion of left index finger without damage to nail, initial encounter (principal); S49.92XA Unspecified injury of left shoulder and upper arm, initial encounter; N39.0 Urinary tract infection, site not specified; F17.210 Nicotine dependence, cigarettes, uncomplicated; Z98.51 Tubal ligation status; Z88.1 Allergy status to other antibiotic agents; W01.0XXA Fall on same level from slipping, tripping and stumbling without subsequent striking against object, initial encounter; Y93.89 Activity, other specified; Y92.89 Other specified places as the place of occurrence of the external cause; Y99.8 Other external cause status

== ENCOUNTER 2021-03-10 18:46 | Emergency (ER) | payer OTHER ==
[~2021-03-10] VITALS: Ht 152.4 cm; Wt 91.2 kg
[2021-03-10 19:02] VITALS: BP 105/75
[2021-03-10 19:08] LABS: URINE BILIRUBIN NEGATIVE (Negative); URINE BLOOD 2+ (Negative); URINE COLOR YELLOW; URINE GLUCOSE-RANDOM* NEGATIVE (Negative); URINE KETONES NEGATIVE (Negative); URINE NITRITE-REFLEX NEGATIVE (Negative); URINE PROTEIN (DIPSTICK) 1+ (Negative); URINE SPECIFIC GRAVITY >= 1.030 (1.005-1.035)
[2021-03-10 19:11] LABS: URINE CLARITY CLOUDY; URINE LEUKOCYTES-REFLEX 2+ (Negative)
[2021-03-10 19:15] LABS: SQUAMOUS >10 Many /LPF (0-3); URINE WBC-REFLEX >25 Many /HPF (0-5)
[2021-03-10 19:16] LABS: BACTERIA-REFLEX >30 Many /HPF (None Seen); CRYSTALS None Seen /LPF (None Seen)
[2021-03-10] MEDS ORDERED: CEPHALEXIN500 MG PO (20:08)
[2021-03-10] MEDS ORDERED: DOXYCYCLINE 10100 MG PO (20:34)
== END 2021-03-10 21:30 | disposition home or self-care (01) ==
LOC: ER 18:46
PROVIDERS: Emergency Medicine
DX: N39.0 Urinary tract infection, site not specified (principal); F17.210 Nicotine dependence, cigarettes, uncomplicated; Z11.3 Encounter for screening for infections with a predominantly sexual mode of transmission; Z87.442 Personal history of urinary calculi; Z98.51 Tubal ligation status

== ENCOUNTER 2021-03-17 15:24 | Emergency (ER) | payer OTHER ==
[~2021-03-17] VITALS: Ht 152.4 cm; Wt 91.2 kg
[~2021-03-17 15:24] MED LIST changes: +CEPHALEXIN500 MG PO
[2021-03-17 15:35] LABS: URINE BILIRUBIN NEGATIVE (Negative); URINE BLOOD 1+ (Negative); URINE COLOR YELLOW; URINE GLUCOSE-RANDOM* NEGATIVE (Negative); URINE KETONES TRACE (Negative); URINE NITRITE-REFLEX NEGATIVE (Negative); URINE PROTEIN (DIPSTICK) NEGATIVE (Negative); URINE SPECIFIC GRAVITY >= 1.030 (1.005-1.035); URINE UROBILINOGEN 0.2 E.U./dl (0.2-1.0)
[2021-03-17 15:38] LABS: URINE CLARITY HAZY; URINE LEUKOCYTES-REFLEX 2+ (Negative)
[2021-03-17 15:47] LABS: SQUAMOUS 4-10 Moderate /LPF (0-3)
[2021-03-17 15:48] LABS: URINE RBC 3-10 Few /HPF (NONE SEEN); URINE WBC-REFLEX >25 Many /HPF (0-5)
[2021-03-17 15:49] LABS: CASTS None Seen /LPF (None Seen); CRYSTALS None Seen /LPF (None Seen)
[2021-03-17] MEDS ORDERED: ZOFRAN ODT4 MG PO (16:25)
[2021-03-17] MEDS ORDERED: FLAGYL500 M1 PO (16:25)
[2021-03-17] MEDS ORDERED: PYRIDIUM200 MG PO (16:25)
[2021-03-17] MEDS ORDERED: CIPROFLOXACIN500 M1 PO (16:25)
[2021-03-17 16:26] VITALS: BP 134/79
== END 2021-03-17 16:26 | disposition home or self-care (01) ==
LOC: ER 15:24
PROVIDERS: Emergency Medicine
DX: N39.0 Urinary tract infection, site not specified (principal); A59.9 Trichomoniasis, unspecified; F17.210 Nicotine dependence, cigarettes, uncomplicated; Z98.51 Tubal ligation status; Z87.442 Personal history of urinary calculi; Z98.890 Other specified postprocedural states; Z88.1 Allergy status to other antibiotic agents

== ENCOUNTER 2021-04-24 20:09 | Emergency (ER) | payer OTHER ==
[~2021-04-24] VITALS: Ht 152.4 cm; Wt 91.2 kg
[~2021-04-24 20:09] MED LIST changes: +CIPROFLOXACIN500 M1 PO
[2021-04-24] MEDS ORDERED: MECLIZINE HCL25 M1 PO (21:17)
[2021-04-24 21:59] VITALS: BP 113/79
== END 2021-04-24 21:50 | disposition home or self-care (01) ==
LOC: ER 20:09
DX: R42 Dizziness and giddiness (principal); F31.9 Bipolar disorder, unspecified; F17.210 Nicotine dependence, cigarettes, uncomplicated; Z79.899 Other long term (current) drug therapy; Z88.8 Allergy status to other drugs, medicaments and biological substances